=== PATIENT | female | born 1945 | race Caucasian/White ===

== ENCOUNTER 2022-06-07 23:15 | Inpatient (IN) | payer MEDICARE, MEDICAID ==
[2022-06-08] MEDS ORDERED: Ondansetron ODT 4 MG TAB PO PRN (01:27)
[2022-06-08] MEDS ORDERED: Non-Formulary Item 1 EACH (Budesonide-Formoterol [Symbicort 80-4.5] 80 MG/4.5 MG Aer) PO PRN (01:27)
[2022-06-08 01:55] LABS: SARS-CoV-2 NAA Rapid Test Not Detected (NotDetected)
[2022-06-08] MEDS: Acetaminophen 325 MG TAB PO PRN ×4 (02:36→21:57)
[2022-06-08] MEDS ORDERED: FLU VACC QS2022-23(65YR UP)/PF 240 MCG/0.7 ML SYRINGE IM ONE (09:00)
[2022-06-08] MEDS ORDERED: Lansoprazole 3 MG/ML ORAL SUSPENSION PO SCH (09:00)
[2022-06-08] MEDS: Apixaban 5 MG TAB PO SCH ×2 (09:18→20:04)
[2022-06-08] MEDS: Atorvastatin Calcium 20 MG TAB PO SCH (09:18)
[2022-06-08] MEDS: Furosemide 40 MG TAB PO SCH ×2 (09:19→20:03)
[2022-06-08] MEDS: Amlodipine 10 MG TAB PO SCH (09:19)
[2022-06-08] MEDS: Docusate 100 MG CAP PO SCH ×2 (09:19→20:04)
[2022-06-08 09:44] VITALS: BMI 29.9
[2022-06-08 13:17] LABS: Thyroid Stimulating Hormone 0.6889 uIU/mL (0.35-4.94)
[2022-06-08] MEDS ORDERED: Ketorolac Tromethamine 60 MG/2 ML VIAL IM SCH (13:30)
[2022-06-08] MEDS ORDERED: Gentamicin 80 MG/2 ML VIAL IM SCH (14:00)
[2022-06-08] MEDS ORDERED: Ketorolac Tromethamine 30 MG/ML VIAL IM SCH (14:30)
[2022-06-08] MEDS: Gabapentin 300 MG CAP PO SCH (20:03)
[2022-06-08] MEDS ORDERED: Melatonin 3 MG TAB PO SCH (21:00)
[2022-06-08] MEDS ORDERED: Cyclobenzaprine 10 MG TAB PO SCH (21:00)
[2022-06-08] MEDS ORDERED: Gabapentin 300 MG CAP PO SCH (21:00)
[2022-06-09] MEDS: Docusate 100 MG CAP PO SCH ×2 (08:38→22:27)
[2022-06-09] MEDS: Gabapentin 300 MG CAP PO SCH ×2 (08:38→22:27)
[2022-06-09] MEDS: Amlodipine 10 MG TAB PO SCH (08:40)
[2022-06-09] MEDS: Atorvastatin Calcium 20 MG TAB PO SCH (08:40)
[2022-06-09] MEDS: Furosemide 40 MG TAB PO SCH ×2 (08:40→22:28)
[2022-06-09] MEDS: Apixaban 5 MG TAB PO SCH ×2 (08:42→22:28)
[2022-06-09] MEDS: Lidocaine 5% Patch TD SCH (08:42)
[2022-06-09] MEDS: Transdermal Patch Removal TOP SCH (21:00)
[2022-06-10] MEDS: Acetaminophen 325 MG TAB PO PRN (00:19)
[2022-06-10 07:06] LABS: #Eosinphils 0.4 thou/uL (0.0-0.7); #Monocytes 0.8 thou/uL (0.11-0.59); #Neutrophils 4.8 thou/uL (1.40-6.50); %Basophils 0.4 % (0.0-1.0); %Eosinophils 4.4 % (0.0-10.0); %Lymphocytes 25.4 % (21.0-51.0); %Monocytes 9.5 % (0.0-10.0); %Neutrophils 60.3 % (42.0-75.0); Hemoglobin 11.9 g/dL (12.0-16.0); Mean Corpuscular HGB CONC 31.8 g/dL (32.0-36.0); Mean Corpuscular Hemoglobin 26.3 pg (27.0-31.0); Mean Corpuscular Volume 82.6 fL (78.0-98.0); Mean Platelet Volume 7.5 fL (7.4-10.4); Platelet Count 296 thou/uL (130-400); RBC Distribution Width 15.8 % (11.5-14.5); Red Blood Cell (RBC) Count 4.54 mill/uL (4.20-5.40)
[2022-06-10 07:17] LABS: Anion Gap 14 mmol/L (10-20); BUN (Urea Nitrogen) 23 mg/dL (9.8-20.1); Calc. Creatinine Clearance 61 mL/min (70-130); Carbon Dioxide 25 mmol/L (23-31); Chloride 103 mmol/L (98-107); Estimated GFR 56; Glucose 165 mg/dL (83-110); Potassium 3.8 mmol/L (3.5-5.1); Sodium 138 mmol/L (136-145)
[2022-06-10] MEDS: Lidocaine 5% Patch TD SCH (08:49)
[2022-06-10] MEDS: Amlodipine 10 MG TAB PO SCH (08:52)
[2022-06-10] MEDS: Docusate 100 MG CAP PO SCH ×2 (08:52→20:21)
[2022-06-10] MEDS: Apixaban 5 MG TAB PO SCH ×2 (08:53→20:21)
[2022-06-10] MEDS: Furosemide 40 MG TAB PO SCH ×2 (08:53→20:21)
[2022-06-10] MEDS: Atorvastatin Calcium 20 MG TAB PO SCH (08:53)
[2022-06-10] MEDS: Gabapentin 300 MG CAP PO SCH ×2 (08:53→20:21)
[2022-06-10] MEDS ORDERED: Ketorolac Tromethamine 30 MG/ML VIAL IVP SCH (12:00)
[2022-06-10] MEDS: Ketorolac Tromethamine 30 MG/ML VIAL IM SCH ×2 (12:43→17:26)
[2022-06-10] MEDS: Acetaminophen 325 MG TAB PO SCH ×2 (12:43→17:25)
[2022-06-10] MEDS: Transdermal Patch Removal TOP SCH (20:21)
[2022-06-11] MEDS: Ketorolac Tromethamine 30 MG/ML VIAL IM SCH ×2 (00:19→05:54)
[2022-06-11] MEDS: Acetaminophen 325 MG TAB PO SCH ×4 (00:20→18:41)
[2022-06-11] MEDS: Lidocaine 5% Patch TD SCH (09:02)
[2022-06-11] MEDS: Atorvastatin Calcium 20 MG TAB PO SCH (09:03)
[2022-06-11] MEDS: Gabapentin 300 MG CAP PO SCH ×2 (09:03→21:06)
[2022-06-11] MEDS: Furosemide 40 MG TAB PO SCH ×2 (09:03→21:05)
[2022-06-11] MEDS: Amlodipine 10 MG TAB PO SCH (09:03)
[2022-06-11] MEDS: Docusate 100 MG CAP PO SCH ×2 (09:04→21:06)
[2022-06-11] MEDS: Apixaban 5 MG TAB PO SCH ×2 (09:04→21:06)
[2022-06-11] MEDS ORDERED: Cyclobenzaprine 10 MG TAB PO SCH (21:00)
[2022-06-11] MEDS: Transdermal Patch Removal TOP SCH (21:06)
[2022-06-11] MEDS: Ketorolac Tromethamine 30 MG/ML VIAL IM PRN (21:20)
[2022-06-12] MEDS: Acetaminophen 325 MG TAB PO SCH ×5 (01:12→23:44)
[2022-06-12] MEDS: Lidocaine 5% Patch TD SCH (09:22)
[2022-06-12] MEDS: Amlodipine 10 MG TAB PO SCH (09:23)
[2022-06-12] MEDS: Gabapentin 300 MG CAP PO SCH ×2 (09:23→21:00)
[2022-06-12] MEDS: Docusate 100 MG CAP PO SCH ×2 (09:23→21:00)
[2022-06-12] MEDS: Apixaban 5 MG TAB PO SCH ×2 (09:23→21:00)
[2022-06-12] MEDS: Atorvastatin Calcium 20 MG TAB PO SCH (09:23)
[2022-06-12] MEDS: Furosemide 40 MG TAB PO SCH ×2 (09:24→21:00)
[2022-06-12] MEDS ORDERED: metFORMIN 500 MG TAB PO SCH (12:00)
[2022-06-12] MEDS ORDERED: Dextrose 5% in Water 1,000 ML IV PRN (19:48)
[2022-06-12] MEDS ORDERED: Dextrose 50% Abboject 50 ML SYRINGE SLOW IVP PRN (19:48)
[2022-06-12] MEDS: Transdermal Patch Removal TOP SCH (21:01)
[2022-06-12] MEDS: HumaLOG 300 UNITS/3 ML VIAL SC PRN (21:01)
[2022-06-12] MEDS: Ketorolac Tromethamine 30 MG/ML VIAL IM PRN (22:21)
[2022-06-13] MEDS: Acetaminophen 325 MG TAB PO SCH ×4 (05:34→23:26)
[2022-06-13] MEDS: HumaLOG 300 UNITS/3 ML VIAL SC PRN ×4 (07:30→20:16)
[2022-06-13 09:09] LABS: Hemoglobin A1c 7.8 % (4.0-6.0)
[2022-06-13] MEDS: Furosemide 40 MG TAB PO SCH ×2 (09:34→20:13)
[2022-06-13] MEDS: Lidocaine 5% Patch TD SCH (09:34)
[2022-06-13] MEDS: Atorvastatin Calcium 20 MG TAB PO SCH (09:34)
[2022-06-13] MEDS: Apixaban 5 MG TAB PO SCH ×2 (09:34→20:13)
[2022-06-13] MEDS: Amlodipine 10 MG TAB PO SCH (09:34)
[2022-06-13] MEDS: metFORMIN 500 MG TAB PO SCH (09:34)
[2022-06-13] MEDS: Gabapentin 300 MG CAP PO SCH ×2 (09:35→20:13)
[2022-06-13] MEDS: Docusate 100 MG CAP PO SCH ×2 (09:35→20:13)
[2022-06-13] MEDS: Transdermal Patch Removal TOP SCH (20:14)
[2022-06-14] MEDS: Acetaminophen 325 MG TAB PO SCH ×3 (05:10→19:50)
[2022-06-14] MEDS: HumaLOG 300 UNITS/3 ML VIAL SC PRN ×3 (05:16→19:55)
[2022-06-14] MEDS ORDERED: Insulin Glargine 30 UNITS/0.3 ML VIAL SC SCH ×2 (09:00)
[2022-06-14] MEDS: Gabapentin 300 MG CAP PO SCH ×2 (09:24→19:50)
[2022-06-14] MEDS: Atorvastatin Calcium 20 MG TAB PO SCH (09:24)
[2022-06-14] MEDS: Furosemide 40 MG TAB PO SCH ×2 (09:24→19:51)
[2022-06-14] MEDS: Docusate 100 MG CAP PO SCH ×2 (09:24→19:51)
[2022-06-14] MEDS: Apixaban 5 MG TAB PO SCH ×2 (09:25→19:50)
[2022-06-14] MEDS: Amlodipine 10 MG TAB PO SCH (09:25)
[2022-06-14] MEDS: metFORMIN 500 MG TAB PO SCH (09:25)
[2022-06-14] MEDS: Lidocaine 5% Patch TD SCH (09:26)
[2022-06-14] MEDS: Transdermal Patch Removal TOP SCH (19:51)
[2022-06-15] MEDS: Acetaminophen 325 MG TAB PO SCH ×4 (00:33→17:18)
[2022-06-15] MEDS: HumaLOG 300 UNITS/3 ML VIAL SC PRN ×3 (05:25→20:13)
[2022-06-15] MEDS: Furosemide 40 MG TAB PO SCH ×2 (08:32→20:13)
[2022-06-15] MEDS: metFORMIN 500 MG TAB PO SCH (08:32)
[2022-06-15] MEDS: Amlodipine 10 MG TAB PO SCH (08:32)
[2022-06-15] MEDS: Docusate 100 MG CAP PO SCH ×2 (08:32→20:12)
[2022-06-15] MEDS: Apixaban 5 MG TAB PO SCH ×2 (08:32→20:12)
[2022-06-15] MEDS: Atorvastatin Calcium 20 MG TAB PO SCH (08:33)
[2022-06-15] MEDS: Lidocaine 5% Patch TD SCH (08:33)
[2022-06-15] MEDS: Gabapentin 300 MG CAP PO SCH ×2 (08:34→20:12)
[2022-06-15] MEDS ORDERED: Insulin Glargine 30 UNITS/0.3 ML VIAL SC SCH (09:00)
[2022-06-15] MEDS: HumaLOG 300 UNITS/3 ML VIAL SC SCH (17:17)
[2022-06-15] MEDS: Transdermal Patch Removal TOP SCH (20:13)
[2022-06-16] MEDS: Acetaminophen 325 MG TAB PO SCH ×4 (00:36→18:45)
[2022-06-16] MEDS: HumaLOG 300 UNITS/3 ML VIAL SC PRN ×2 (05:36→21:38)
[2022-06-16] MEDS: Docusate 100 MG CAP PO SCH ×2 (07:53→21:02)
[2022-06-16] MEDS: Apixaban 5 MG TAB PO SCH ×2 (07:53→21:03)
[2022-06-16] MEDS: metFORMIN 500 MG TAB PO SCH (07:53)
[2022-06-16] MEDS: Gabapentin 300 MG CAP PO SCH ×2 (07:53→21:02)
[2022-06-16] MEDS: Furosemide 40 MG TAB PO SCH ×2 (07:55→21:02)
[2022-06-16] MEDS: Amlodipine 10 MG TAB PO SCH (07:56)
[2022-06-16] MEDS: Atorvastatin Calcium 20 MG TAB PO SCH (07:56)
[2022-06-16] MEDS: HumaLOG 300 UNITS/3 ML VIAL SC SCH ×3 (08:02→17:04)
[2022-06-16] MEDS: Insulin Glargine 30 UNITS/0.3 ML VIAL SC SCH (08:10)
[2022-06-16] MEDS: Lidocaine 5% Patch TD SCH (09:21)
[2022-06-16] MEDS: Transdermal Patch Removal TOP SCH (21:09)
[2022-06-17 05:06] VITALS: TEMP 97.6
[2022-06-17] MEDS: HumaLOG 300 UNITS/3 ML VIAL SC PRN (06:01)
[2022-06-17] MEDS: Acetaminophen 325 MG TAB PO SCH ×2 (06:02)
[2022-06-17] MEDS: Atorvastatin Calcium 20 MG TAB PO SCH (09:13)
[2022-06-17] MEDS: Amlodipine 10 MG TAB PO SCH (09:13)
[2022-06-17] MEDS: HumaLOG 300 UNITS/3 ML VIAL SC SCH (09:13)
[2022-06-17] MEDS: Apixaban 5 MG TAB PO SCH (09:13)
[2022-06-17] MEDS: metFORMIN 500 MG TAB PO SCH (09:13)
[2022-06-17] MEDS: Lidocaine 5% Patch TD SCH (09:13)
[2022-06-17] MEDS: Furosemide 40 MG TAB PO SCH (09:13)
[2022-06-17] MEDS: Docusate 100 MG CAP PO SCH (09:13)
[2022-06-17] MEDS: Gabapentin 300 MG CAP PO SCH (09:13)
[2022-06-17] MEDS: Insulin Glargine 30 UNITS/0.3 ML VIAL SC SCH (09:14)
[2022-06-17 12:18] VITALS: BP 118/78
== END 2022-06-17 12:40 | DRG 395 ==
LOC: SURG A 06-08 00:03 → OBSVTOIN 06-08 14:19
PROVIDERS: ADMIT Family Medicine; ATTEND Family Medicine
DX: T18.128A Food in esophagus causing other injury, initial encounter (principal); Z20.822 Contact with and (suspected) exposure to COVID-19; Z51.5 Encounter for palliative care; K21.9 Gastro-esophageal reflux disease without esophagitis; E11.42 Type 2 diabetes mellitus with diabetic polyneuropathy; I10 Essential (primary) hypertension; E78.5 Hyperlipidemia, unspecified; J44.9 Chronic obstructive pulmonary disease, unspecified; M54.9 Dorsalgia, unspecified; G89.29 Other chronic pain; F03.90 Unspecified dementia, unspecified severity, without behavioral disturbance, psychotic disturbance, mood disturbance, and anxiety; R29.6 Repeated falls; D64.9 Anemia, unspecified; Z88.5 Allergy status to narcotic agent; Z79.01 Long term (current) use of anticoagulants; Z79.899 Other long term (current) drug therapy; Z90.49 Acquired absence of other specified parts of digestive tract; Z90.710 Acquired absence of both cervix and uterus
CPT/HCPCS: 36415; 36416; 80048; 82607; 83036; 84443; 85025; 87811; G0378; J1580; J1815; J1885; U0002

== ENCOUNTER 2025-04-26 20:57 | Inpatient (IN) | payer MEDICARE, MEDICAID ==
[2025-04-26 23:52] LABS: #Basophils 0.03 10x3/uL (0.0-0.2); #Eosinophils 0.26 10x3/uL (0.0-0.7); #Monocytes 0.94 10x3/uL (0.11-0.59); #Neutrophils 8.42 10x3/uL (1.40-6.50); %Basophils 0.3 % (0.0-1.0); %Eosinophils 2.3 % (0.0-10.0); %Lymphocytes 12.9 % (21.0-51.0); %Monocytes 8.5 % (0.0-10.0); %Neutrophils 75.7 % (42.0-75.0); Hematocrit 31.8 % (36.0-47.0); Hemoglobin 10.2 g/dL (12.0-16.0); Mean Corpuscular Hemoglobin 28.6 pg (27.0-31.0); Mean Corpuscular Volume 89.1 fL (78.0-98.0); Platelet Count 268 10x3/uL (130-400); Red Blood Cell (RBC) Count 3.57 mill/uL (4.20-5.40); White Blood Cell (WBC) Count 11.11 10x3/uL (4.8-10.8)
[2025-04-27 00:06] LABS: INR-International Normal Ratio 1.7; PTT 45.2 sec (22.9-36.1); Prothrombin Time 20.5 sec (12.0-14.7)
[2025-04-27 00:08] LABS: ALT (SGPT) 13 U/L (Less than 34); AST (SGOT) 19 U/L (11-34); Albumin 3.4 g/dL (3.1-4.5); Alkaline Phosphatase 115 U/L (40-110); Anion Gap 17 mmol/L (10-20); BUN (Urea Nitrogen) 24 mg/dL (9.8-20.1); Bilirubin, Total 0.6 mg/dL (0.3-1.2); Calc. Creatinine Clearance 0 mL/min (70-130); Calcium 8.9 mg/dL (7.8-10.44); Carbon Dioxide 22 mmol/L (23-31); Chloride 109 mmol/L (98-107); Globulin 3.6 g/dL (2.4-3.5); Glucose 95 mg/dL (83-110); Potassium 4.0 mmol/L (3.5-5.1); Sodium 144 mmol/L (136-145)
[2025-04-27] MEDS ORDERED: Dextrose 50% Abboject 50 ML SYRINGE SLOW IVP PRN (02:01)
[2025-04-27] MEDS ORDERED: Ondansetron PF 4 MG/2 ML Vial IVP PRN (02:01)
[2025-04-27] MEDS ORDERED: Glucagon 1 MG/ML KIT IM PRN (02:01)
[2025-04-27] MEDS ORDERED: Acetaminophen 325 MG TAB PO PRN (02:01)
[2025-04-27 02:08] LABS: Bacteria/HPF None Seen HPF (None Seen); CAUTI Indications for Culture Alt mental st,lethar; Glucose, Urine (Dipstick) Normal (Negative); Leukocyte Negative Leu/uL (Negative); Protein, Urine (Dipstick) Negative (Neg-Trace); Specific Gravity, Urine 1.012 (1.002-1.036); WBC/HPF 0-3 HPF (0-3)
[2025-04-27 02:09] LABS: Urine Culture Reflex No No
[2025-04-27 03:37] VITALS: BMI 32.0
[2025-04-27 04:51] LABS: #Basophils Less than 0.03 10x3/uL (0.0-0.2); #Eosinophils 0.14 10x3/uL (0.0-0.7); #Monocytes 0.59 10x3/uL (0.11-0.59); #Neutrophils 6.99 10x3/uL (1.40-6.50); %Basophils 0.2 % (0.0-1.0); %Eosinophils 1.6 % (0.0-10.0); %Lymphocytes 11.2 % (21.0-51.0); %Monocytes 6.7 % (0.0-10.0); %Neutrophils 80.0 % (42.0-75.0); Hematocrit 30.3 % (36.0-47.0); Hemoglobin 9.6 g/dL (12.0-16.0); Mean Corpuscular Hemoglobin 28.6 pg (27.0-31.0); Mean Corpuscular Volume 90.2 fL (78.0-98.0); Platelet Count 270 10x3/uL (130-400); Red Blood Cell (RBC) Count 3.36 mill/uL (4.20-5.40); White Blood Cell (WBC) Count 8.75 10x3/uL (4.8-10.8)
[2025-04-27 05:20] LABS: Anion Gap 12 mmol/L (10-20); BUN (Urea Nitrogen) 19 mg/dL (9.8-20.1); Calc. Creatinine Clearance 90 mL/min (70-130); Calcium 8.5 mg/dL (7.8-10.44); Carbon Dioxide 25 mmol/L (23-31); Chloride 110 mmol/L (98-107); Glucose 108 mg/dL (83-110); Potassium 3.9 mmol/L (3.5-5.1); Sodium 143 mmol/L (136-145)
[2025-04-27] MEDS: Famotidine/PF 20 mg/2ml Vial SLOW IVP SCH (08:44)
[2025-04-27] MEDS: hydrALAZINE 20 MG/ML VIAL SLOW IVP PRN (08:48)
[2025-04-27] MEDS: Mupirocin 1 GM TUBE NASAL DECOLONIZATION TP SCH (12:43)
[2025-04-27] MEDS ORDERED: Iopamidol 370 76% 100 ML VIAL ONE (13:32)
[2025-04-27] MEDS: Mupirocin 1 GM TUBE NASAL DECOLOIZATION TP SCH (21:54)
[2025-04-28 04:25] LABS: #Basophils 0.04 10x3/uL (0.0-0.2); #Eosinophils 0.25 10x3/uL (0.0-0.7); #Monocytes 0.81 10x3/uL (0.11-0.59); #Neutrophils 7.30 10x3/uL (1.40-6.50); %Basophils 0.4 % (0.0-1.0); %Eosinophils 2.6 % (0.0-10.0); %Lymphocytes 13.7 % (21.0-51.0); %Monocytes 8.3 % (0.0-10.0); %Neutrophils 74.5 % (42.0-75.0); Hematocrit 31.3 % (36.0-47.0); Hemoglobin 10.1 g/dL (12.0-16.0); Mean Corpuscular Hemoglobin 28.1 pg (27.0-31.0); Mean Corpuscular Volume 87.2 fL (78.0-98.0); Platelet Count 274 10x3/uL (130-400); Red Blood Cell (RBC) Count 3.59 mill/uL (4.20-5.40); White Blood Cell (WBC) Count 9.79 10x3/uL (4.8-10.8)
[2025-04-28 04:39] LABS: Anion Gap 18 mmol/L (10-20); BUN (Urea Nitrogen) 14 mg/dL (9.8-20.1); Calc. Creatinine Clearance 114 mL/min (70-130); Calcium 9.0 mg/dL (7.8-10.44); Carbon Dioxide 20 mmol/L (23-31); Chloride 105 mmol/L (98-107); Glucose 123 mg/dL (83-110); Potassium 3.8 mmol/L (3.5-5.1); Sodium 139 mmol/L (136-145)
[2025-04-28] MEDS: Transdermal Patch Removal TOP SCH (08:00)
[2025-04-29 04:37] LABS: #Basophils 0.04 10x3/uL (0.0-0.2); #Eosinophils 0.18 10x3/uL (0.0-0.7); #Monocytes 1.01 10x3/uL (0.11-0.59); #Neutrophils 8.71 10x3/uL (1.40-6.50); %Basophils 0.4 % (0.0-1.0); %Eosinophils 1.6 % (0.0-10.0); %Lymphocytes 11.7 % (21.0-51.0); %Monocytes 8.9 % (0.0-10.0); %Neutrophils 76.7 % (42.0-75.0); Hematocrit 33.0 % (36.0-47.0); Hemoglobin 10.7 g/dL (12.0-16.0); Mean Corpuscular Hemoglobin 28.6 pg (27.0-31.0); Mean Corpuscular Volume 88.2 fL (78.0-98.0); Platelet Count 304 10x3/uL (130-400); Red Blood Cell (RBC) Count 3.74 mill/uL (4.20-5.40); White Blood Cell (WBC) Count 11.35 10x3/uL (4.8-10.8)
[2025-04-29 05:04] LABS: Anion Gap 17 mmol/L (10-20); BUN (Urea Nitrogen) 14 mg/dL (9.8-20.1); Calc. Creatinine Clearance 96 mL/min (70-130); Calcium 8.8 mg/dL (7.8-10.44); Carbon Dioxide 20 mmol/L (23-31); Chloride 103 mmol/L (98-107); Glucose 143 mg/dL (83-110); Potassium 3.8 mmol/L (3.5-5.1); Sodium 136 mmol/L (136-145)
[2025-04-29] MEDS ORDERED: HALOPERIDOL 2 MG PO PRN (09:46)
[2025-04-29] MEDS ORDERED: Furosemide 40 MG TAB PO PRN (09:46)
[2025-04-29] MEDS: Losartan 25 MG TAB PO SCH ×2 (10:00→14:20)
[2025-04-29] MEDS: QUEtiapine 25 MG TAB PO SCH ×2 (10:00→21:27)
[2025-04-29] MEDS: Metoprolol Succinate XL 25 MG ER.TAB PO SCH ×2 (10:00→14:30)
[2025-04-29] MEDS ORDERED: Haloperidol 1 MG TAB PO PRN (11:12)
[2025-04-29] MEDS ORDERED: QUEtiapine 25 MG TAB PO SCH (15:00)
[2025-04-29] MEDS: oxyCODONE 5 MG TAB PO PRN (18:12)
[2025-04-29] MEDS: Mometasone 100 MCG/Formoterol 5 MCG 120 PUFF INHALER INH SCH (18:42)
[2025-04-29] MEDS: cloNIDine 0.1 MG TAB PO PRN (21:26)
[2025-04-29] MEDS: Acetaminophen 500 MG TAB PO SCH (21:27)
[2025-04-29] MEDS: Melatonin 3 MG TAB PO SCH (21:28)
[2025-04-30 07:59] LABS: #Basophils 0.05 10x3/uL (0.0-0.2); #Eosinophils 0.72 10x3/uL (0.0-0.7); #Monocytes 1.21 10x3/uL (0.11-0.59); #Neutrophils 9.04 10x3/uL (1.40-6.50); %Basophils 0.4 % (0.0-1.0); %Eosinophils 5.8 % (0.0-10.0); %Lymphocytes 11.5 % (21.0-51.0); %Monocytes 9.7 % (0.0-10.0); %Neutrophils 72.2 % (42.0-75.0); Hematocrit 32.0 % (36.0-47.0); Hemoglobin 10.6 g/dL (12.0-16.0); Mean Corpuscular Hemoglobin 29.1 pg (27.0-31.0); Mean Corpuscular Volume 87.9 fL (78.0-98.0); Platelet Count 256 10x3/uL (130-400); Red Blood Cell (RBC) Count 3.64 mill/uL (4.20-5.40); White Blood Cell (WBC) Count 12.51 10x3/uL (4.8-10.8)
[2025-04-30 08:09] LABS: Anion Gap 14 mmol/L (10-20); BUN (Urea Nitrogen) 14 mg/dL (9.8-20.1); Calc. Creatinine Clearance 92 mL/min (70-130); Calcium 8.6 mg/dL (7.8-10.44); Carbon Dioxide 25 mmol/L (23-31); Chloride 105 mmol/L (98-107); Glucose 146 mg/dL (83-110); Potassium 3.6 mmol/L (3.5-5.1); Sodium 140 mmol/L (136-145)
[2025-04-30] MEDS: Losartan 25 MG TAB PO SCH (10:33)
[2025-04-30] MEDS: Metoprolol Succinate XL 25 MG ER.TAB PO SCH (10:34)
[2025-04-30] MEDS: QUEtiapine 25 MG TAB PO SCH (10:34)
[2025-05-01 04:17] LABS: #Basophils 0.05 10x3/uL (0.0-0.2); #Eosinophils 0.77 10x3/uL (0.0-0.7); #Monocytes 1.42 10x3/uL (0.11-0.59); #Neutrophils 6.06 10x3/uL (1.40-6.50); %Basophils 0.5 % (0.0-1.0); %Eosinophils 7.7 % (0.0-10.0); %Lymphocytes 17.0 % (21.0-51.0); %Monocytes 14.1 % (0.0-10.0); %Neutrophils 60.3 % (42.0-75.0); Hematocrit 32.9 % (36.0-47.0); Hemoglobin 10.5 g/dL (12.0-16.0); Mean Corpuscular Hemoglobin 28.8 pg (27.0-31.0); Mean Corpuscular Volume 90.1 fL (78.0-98.0); Platelet Count 247 10x3/uL (130-400); Red Blood Cell (RBC) Count 3.65 mill/uL (4.20-5.40); White Blood Cell (WBC) Count 10.05 10x3/uL (4.8-10.8)
[2025-05-01 04:38] LABS: Anion Gap 16 mmol/L (10-20); BUN (Urea Nitrogen) 16 mg/dL (9.8-20.1); Calc. Creatinine Clearance 89 mL/min (70-130); Calcium 8.7 mg/dL (7.8-10.44); Carbon Dioxide 21 mmol/L (23-31); Chloride 108 mmol/L (98-107); Glucose 154 mg/dL (83-110); Potassium 4.1 mmol/L (3.5-5.1); Sodium 141 mmol/L (136-145)
[2025-05-01 18:35] LABS: Bacteria/HPF 2+ HPF (None Seen); CAUTI Indications for Culture Alt mental st,lethar; Glucose, Urine (Dipstick) 200 mg/dL (Negative); Leukocyte 500 Leu/uL (Negative); Protein, Urine (Dipstick) 50 mg/dL (Neg-Trace); RBC/HPF 0-3 HPF (0-3); Specific Gravity, Urine 1.015 (1.002-1.036); WBC/HPF Greater than 50 HPF (0-3)
[2025-05-01 18:38] LABS: Urine Culture Reflex Yes Yes
[2025-05-01] MEDS: Apixaban 5 MG TAB PO SCH (22:01)
[2025-05-02 04:25] LABS: Anion Gap 17 mmol/L (10-20); BUN (Urea Nitrogen) 16 mg/dL (9.8-20.1); Calc. Creatinine Clearance 84 mL/min (70-130); Calcium 8.7 mg/dL (7.8-10.44); Carbon Dioxide 24 mmol/L (23-31); Chloride 109 mmol/L (98-107); Glucose 158 mg/dL (83-110); Potassium 3.6 mmol/L (3.5-5.1); Sodium 146 mmol/L (136-145)
[2025-05-02 04:34] LABS: #Basophils 0.04 10x3/uL (0.0-0.2); #Eosinophils 0.80 10x3/uL (0.0-0.7); #Monocytes 1.19 10x3/uL (0.11-0.59); #Neutrophils 5.94 10x3/uL (1.40-6.50); %Basophils 0.4 % (0.0-1.0); %Eosinophils 8.0 % (0.0-10.0); %Lymphocytes 19.6 % (21.0-51.0); %Monocytes 12.0 % (0.0-10.0); %Neutrophils 59.7 % (42.0-75.0); Hematocrit 34.9 % (36.0-47.0); Hemoglobin 11.2 g/dL (12.0-16.0); Mean Corpuscular Hemoglobin 28.3 pg (27.0-31.0); Mean Corpuscular Volume 88.1 fL (78.0-98.0); Platelet Count 283 10x3/uL (130-400); Red Blood Cell (RBC) Count 3.96 mill/uL (4.20-5.40); White Blood Cell (WBC) Count 9.95 10x3/uL (4.8-10.8)
[2025-05-02] MEDS: Ciprofloxacin Lactate/D5W 200 MG in Premix 1 BAG IVPB SCH (09:55)
[2025-05-02] MEDS: Carvedilol 6.25 MG TAB PO SCH (16:39)
[2025-05-02 17:10] VITALS: BMI 31.6
[2025-05-02] MEDS: Losartan 25 MG TAB PO SCH (21:38)
[2025-05-02] MEDS: Ciprofloxacin Lactate/D5W 400 MG in Premix 1 BAG IVPB SCH (21:38)
[2025-05-03 03:54] LABS: #Basophils 0.04 10x3/uL (0.0-0.2); #Eosinophils 0.80 10x3/uL (0.0-0.7); #Monocytes 1.02 10x3/uL (0.11-0.59); #Neutrophils 6.39 10x3/uL (1.40-6.50); %Basophils 0.4 % (0.0-1.0); %Eosinophils 7.8 % (0.0-10.0); %Lymphocytes 18.9 % (21.0-51.0); %Monocytes 10.0 % (0.0-10.0); %Neutrophils 62.4 % (42.0-75.0); Hematocrit 32.1 % (36.0-47.0); Hemoglobin 10.0 g/dL (12.0-16.0); Mean Corpuscular Hemoglobin 28.0 pg (27.0-31.0); Mean Corpuscular Volume 89.9 fL (78.0-98.0); Platelet Count 269 10x3/uL (130-400); Red Blood Cell (RBC) Count 3.57 mill/uL (4.20-5.40); White Blood Cell (WBC) Count 10.23 10x3/uL (4.8-10.8)
[2025-05-03 04:13] LABS: Anion Gap 12 mmol/L (10-20); BUN (Urea Nitrogen) 19 mg/dL (9.8-20.1); Calc. Creatinine Clearance 92 mL/min (70-130); Calcium 8.6 mg/dL (7.8-10.44); Carbon Dioxide 23 mmol/L (23-31); Chloride 107 mmol/L (98-107); Glucose 178 mg/dL (83-110); Potassium 4.0 mmol/L (3.5-5.1); Sodium 138 mmol/L (136-145)
[2025-05-03] MEDS: hydrALAZINE 20 MG/ML VIAL SLOW IVP SCH (09:00)
[2025-05-03] MEDS: Famotidine 20 MG TAB PO SCH (10:25)
[2025-05-03 15:34] VITALS: TEMP 97.9
[2025-05-03 16:59] VITALS: BP 153/67
== END 2025-05-03 17:25 | DRG 551 ==
LOC: ERS 20:57 → UNDOADMIN 04-27 02:01 → CCU 04-27 02:01 → PCU 04-28 00:12
PROVIDERS: ADMIT Surgery; ATTEND Surgery
DX: S12.600A Unspecified displaced fracture of seventh cervical vertebra, initial encounter for closed fracture (principal); I77.74 Dissection of vertebral artery; G93.40 Encephalopathy, unspecified; F03.918 Unspecified dementia, unspecified severity, with other behavioral disturbance; N39.0 Urinary tract infection, site not specified; W19.XXXA Unspecified fall, initial encounter; Z88.8 Allergy status to other drugs, medicaments and biological substances; S00.03XA Contusion of scalp, initial encounter; S12.000A Unspecified displaced fracture of first cervical vertebra, initial encounter for closed fracture; Z91.010 Allergy to peanuts; K21.9 Gastro-esophageal reflux disease without esophagitis; J44.9 Chronic obstructive pulmonary disease, unspecified; E78.5 Hyperlipidemia, unspecified; Z98.890 Other specified postprocedural states; I10 Essential (primary) hypertension; F32.A Depression, unspecified; I48.0 Paroxysmal atrial fibrillation; F41.9 Anxiety disorder, unspecified; I16.0 Hypertensive urgency; E11.40 Type 2 diabetes mellitus with diabetic neuropathy, unspecified; Z79.899 Other long term (current) drug therapy
CPT/HCPCS: 36415; 36416; 70496; 70498; 71045; 80048; 81001; 84484; 85025; 87086; 94664; 96374; 96375; 96376; G0390; J0360; J0744; J1308; J1630; J1815; J2060; J3010; J7030; J7070; J7120; Q9967

== ENCOUNTER 2025-05-14 16:56 | Inpatient (IN) | payer MEDICARE, MEDICAID ==
[2025-05-14 19:04] LABS: Actual Bicarbonate (HCO3a) 17.5 mEq/L (22-28); Base Excess (BEa) -6.4 mEq/L (-2.0 to +3.0); CO2 Tension 29.6 mmHg (35.0-45.0); Calcium, Ionized (arterial) 1.16 mmol/L (1.12-1.30); Hematocrit-ABG 32 % (36.0-47.0); Hemoglobin (Hb) 10.8 g/dL (12.0-16.0); Potassium - ABG Lab 4.96 mmol/L (3.70-5.30); pH, Arterial 7.389 (7.35-7.45)
[2025-05-14] MEDS ORDERED: Dextrose 50% Abboject 50 ML SYRINGE SLOW IVP PRN (19:10)
[2025-05-14] MEDS ORDERED: Glucagon 1 MG/ML KIT IM PRN (19:10)
[2025-05-14] MEDS ORDERED: Ondansetron PF 4 MG/2 ML Vial IVP PRN (19:10)
[2025-05-14] MEDS ORDERED: Acetaminophen 325 MG TAB PER TUBE PRN (19:10)
[2025-05-14] MEDS: Etomidate 40 MG (20 mL) VIAL IVP SCH (19:15)
[2025-05-14 19:22] LABS: O2 Tension (PaO2), arterial 47.8 mmHg (> 70.0)
[2025-05-14 19:23] LABS: Puncture Site Right Radial artery
[2025-05-14 19:24] LABS: ALV-art Gradient 143.360 mmHg (0-20)
[2025-05-14] MEDS ORDERED: Fentanyl BOLUS 100 ML IVPB PRN (19:30)
[2025-05-14] MEDS ORDERED: Ventilator Sedation Protocol 1 EACH FS SCH (19:30)
[2025-05-14] MEDS ORDERED: Propofol BOLUS 1,000 MG/100 ML VIAL IV PRN (19:30)
[2025-05-14] MEDS ORDERED: DISCONTINUE PREVIOUS NARCOTIC PAIN MEDICATIONS AND BENZODIAZEPINES FS SCH (19:30)
[2025-05-14] MEDS: NOREPINEPHRINE 8 MG/250 ML-D5W 250 ML IVPB SCH (20:31)
[2025-05-14 20:39] LABS: #Basophils Less than 0.03 10x3/uL (0.0-0.2); #Eosinophils Less than 0.03 10x3/uL (0.0-0.7); #Monocytes 1.20 10x3/uL (0.11-0.59); #Neutrophils 13.13 10x3/uL (1.40-6.50); %Basophils 0.1 % (0.0-1.0); %Eosinophils 0.1 % (0.0-10.0); %Lymphocytes 3.1 % (21.0-51.0); %Monocytes 8.0 % (0.0-10.0); %Neutrophils 88.1 % (42.0-75.0); Hematocrit 29.8 % (36.0-47.0); Hemoglobin 9.4 g/dL (12.0-16.0); Mean Corpuscular Hemoglobin 28.7 pg (27.0-31.0); Mean Corpuscular Volume 91.1 fL (78.0-98.0); Platelet Count 431 10x3/uL (130-400); Red Blood Cell (RBC) Count 3.27 mill/uL (4.20-5.40); White Blood Cell (WBC) Count 14.91 10x3/uL (4.8-10.8)
[2025-05-14 21:02] LABS: ALT (SGPT) Less than 7 U/L (Less than 34); AST (SGOT) 14 U/L (11-34); Albumin 2.7 g/dL (3.1-4.5); Alkaline Phosphatase 111 U/L (40-110); Anion Gap 20 mmol/L (10-20); BUN (Urea Nitrogen) 69 mg/dL (9.8-20.1); Bilirubin, Total 0.8 mg/dL (0.3-1.2); Calc. Creatinine Clearance 0 mL/min (70-130); Calcium 8.7 mg/dL (7.8-10.44); Carbon Dioxide 16 mmol/L (23-31); Chloride 113 mmol/L (98-107); Globulin 3.7 g/dL (2.4-3.5); Glucose 161 mg/dL (83-110); Potassium 4.8 mmol/L (3.5-5.1); Sodium 144 mmol/L (136-145)
[2025-05-14] MEDS: Pantoprazole 40 MG VIAL IVP SCH (21:30)
[2025-05-14] MEDS: Enoxaparin 40 MG (0.4 mL) SYRINGE SC SCH (21:30)
[2025-05-14 22:38] VITALS: BMI 29.8
[2025-05-15] MEDS: Acetaminophen 325 MG TAB PO SCH
[2025-05-15] MEDS: NOREPINEPHRINE 8 MG/250 ML-D5W 250 ML ONE (00:02)
[2025-05-15 01:24] LABS: Legionella Urinary Ag Negative (Negative); Strep pneumo Urine Ag NEGATIVE (NEGATIVE)
[2025-05-15 01:51] LABS: Influenza A by NAA Not Detected (NotDetected); Influenza B by NAA Not Detected (NotDetected); RSV by NAA Not Detected (NotDetected); SARS-CoV-2 NAA Rapid Test Not Detected (NotDetected)
[2025-05-15 03:25] LABS: #Basophils 0.03 10x3/uL (0.0-0.2); #Eosinophils 0.14 10x3/uL (0.0-0.7); #Monocytes 1.48 10x3/uL (0.11-0.59); #Neutrophils 13.23 10x3/uL (1.40-6.50); %Basophils 0.2 % (0.0-1.0); %Eosinophils 0.9 % (0.0-10.0); %Lymphocytes 5.8 % (21.0-51.0); %Monocytes 9.3 % (0.0-10.0); %Neutrophils 83.0 % (42.0-75.0); Hematocrit 31.7 % (36.0-47.0); Hemoglobin 9.8 g/dL (12.0-16.0); Mean Corpuscular Hemoglobin 28.4 pg (27.0-31.0); Mean Corpuscular Volume 91.9 fL (78.0-98.0); Platelet Count 425 10x3/uL (130-400); Red Blood Cell (RBC) Count 3.45 mill/uL (4.20-5.40); White Blood Cell (WBC) Count 15.93 10x3/uL (4.8-10.8)
[2025-05-15 03:48] LABS: ALT (SGPT) Less than 7 U/L (Less than 34); AST (SGOT) 14 U/L (11-34); Albumin 2.6 g/dL (3.1-4.5); Alkaline Phosphatase 108 U/L (40-110); Anion Gap 17 mmol/L (10-20); BUN (Urea Nitrogen) 62 mg/dL (9.8-20.1); Bilirubin, Total 0.6 mg/dL (0.3-1.2); Calc. Creatinine Clearance 43 mL/min (70-130); Calcium 8.7 mg/dL (7.8-10.44); Carbon Dioxide 19 mmol/L (23-31); Chloride 114 mmol/L (98-107); Globulin 3.8 g/dL (2.4-3.5); Glucose 158 mg/dL (83-110); Potassium 4.6 mmol/L (3.5-5.1); Sodium 145 mmol/L (136-145)
[2025-05-15 03:57] LABS: CRP, High Sensitivity at Bryan 22.07 mg/dL (< or = 0.5)
[2025-05-15] MEDS: Mometasone 200 MCG/Formoterol 5 MCG 120 PUFF INHALER INH SCH (07:15)
[2025-05-15 07:24] LABS: Actual Bicarbonate (HCO3a) 20.9 mEq/L (22-28); Base Excess (BEa) -3.3 mEq/L (-2.0 to +3.0); CO2 Tension 34.4 mmHg (35.0-45.0); Calcium, Ionized (arterial) 1.19 mmol/L (1.12-1.30); Hematocrit-ABG 30 % (36.0-47.0); Hemoglobin (Hb) 10.2 g/dL (12.0-16.0); O2 Tension (PaO2), arterial 67.8 mmHg (> 70.0); Potassium - ABG Lab 4.19 mmol/L (3.70-5.30); pH, Arterial 7.401 (7.35-7.45)
[2025-05-15] MEDS: Pantoprazole 40 MG VIAL IVP SCH (07:24)
[2025-05-15 07:25] LABS: ALV-art Gradient 245.700 mmHg (0-20); Puncture Site Right Brachial art
[2025-05-15] MEDS ORDERED: Enoxaparin 40 MG (0.4 mL) SYRINGE SC SCH (09:00)
[2025-05-16 04:40] LABS: #Basophils 0.03 10x3/uL (0.0-0.2); #Eosinophils 0.38 10x3/uL (0.0-0.7); #Monocytes 1.39 10x3/uL (0.11-0.59); #Neutrophils 14.37 10x3/uL (1.40-6.50); %Basophils 0.2 % (0.0-1.0); %Eosinophils 2.2 % (0.0-10.0); %Lymphocytes 6.9 % (21.0-51.0); %Monocytes 7.9 % (0.0-10.0); %Neutrophils 81.9 % (42.0-75.0); Hematocrit 26.3 % (36.0-47.0); Hemoglobin 8.3 g/dL (12.0-16.0); Mean Corpuscular Hemoglobin 28.9 pg (27.0-31.0); Mean Corpuscular Volume 91.6 fL (78.0-98.0); Platelet Count 399 10x3/uL (130-400); Red Blood Cell (RBC) Count 2.87 mill/uL (4.20-5.40); White Blood Cell (WBC) Count 17.54 10x3/uL (4.8-10.8)
[2025-05-16 05:14] LABS: Anion Gap 14 mmol/L (10-20); BUN (Urea Nitrogen) 33 mg/dL (9.8-20.1); Calc. Creatinine Clearance 60 mL/min (70-130); Calcium 8.5 mg/dL (7.8-10.44); Carbon Dioxide 19 mmol/L (23-31); Chloride 115 mmol/L (98-107); Glucose 105 mg/dL (83-110); Potassium 4.2 mmol/L (3.5-5.1); Sodium 144 mmol/L (136-145)
[2025-05-16 07:25] LABS: Actual Bicarbonate (HCO3a) 20.6 mEq/L (22-28); Base Excess (BEa) -3.7 mEq/L (-2.0 to +3.0); CO2 Tension 33.9 mmHg (35.0-45.0); Calcium, Ionized (arterial) 1.14 mmol/L (1.12-1.30); Hematocrit-ABG 27 % (36.0-47.0); Hemoglobin (Hb) 9.3 g/dL (12.0-16.0); O2 Tension (PaO2), arterial 65.5 mmHg (> 70.0); Potassium - ABG Lab 4.23 mmol/L (3.70-5.30); pH, Arterial 7.401 (7.35-7.45)
[2025-05-16 07:35] LABS: ALV-art Gradient 248.625 mmHg (0-20); Puncture Site Left Radial artery
[2025-05-17 04:50] LABS: #Basophils 0.04 10x3/uL (0.0-0.2); #Eosinophils 0.53 10x3/uL (0.0-0.7); #Monocytes 1.43 10x3/uL (0.11-0.59); #Neutrophils 14.48 10x3/uL (1.40-6.50); %Basophils 0.2 % (0.0-1.0); %Eosinophils 2.9 % (0.0-10.0); %Lymphocytes 6.6 % (21.0-51.0); %Monocytes 8.0 % (0.0-10.0); %Neutrophils 80.5 % (42.0-75.0); Hematocrit 28.3 % (36.0-47.0); Hemoglobin 8.9 g/dL (12.0-16.0); Mean Corpuscular Hemoglobin 28.5 pg (27.0-31.0); Mean Corpuscular Volume 90.7 fL (78.0-98.0); Platelet Count 403 10x3/uL (130-400); Red Blood Cell (RBC) Count 3.12 mill/uL (4.20-5.40); White Blood Cell (WBC) Count 17.98 10x3/uL (4.8-10.8)
[2025-05-17 05:13] LABS: Anion Gap 15 mmol/L (10-20); BUN (Urea Nitrogen) 27 mg/dL (9.8-20.1); Calc. Creatinine Clearance 70 mL/min (70-130); Calcium 8.6 mg/dL (7.8-10.44); Carbon Dioxide 18 mmol/L (23-31); Chloride 112 mmol/L (98-107); Glucose 185 mg/dL (83-110); Potassium 3.9 mmol/L (3.5-5.1); Sodium 141 mmol/L (136-145)
[2025-05-17 07:11] LABS: Actual Bicarbonate (HCO3a) 20.0 mEq/L (22-28); Base Excess (BEa) -3.7 mEq/L (-2.0 to +3.0); CO2 Tension 31.1 mmHg (35.0-45.0); Calcium, Ionized (arterial) 1.12 mmol/L (1.12-1.30); Hematocrit-ABG 26 % (36.0-47.0); Hemoglobin (Hb) 9.0 g/dL (12.0-16.0); O2 Tension (PaO2), arterial 78.8 mmHg (> 70.0); Potassium - ABG Lab 3.99 mmol/L (3.70-5.30); pH, Arterial 7.426 (7.35-7.45)
[2025-05-17 07:15] LABS: ALV-art Gradient 238.825 mmHg (0-20); Puncture Site Left Radial artery
[2025-05-17] MEDS: Lansoprazole 30 MG/10 ML UDCUP PER TUBE SCH (09:53)
[2025-05-17] MEDS: Acetylcysteine 20% 200 MG/ML 30 ML VIAL INH SCH (14:39)
[2025-05-18 04:47] LABS: #Basophils 0.03 10x3/uL (0.0-0.2); #Eosinophils 0.58 10x3/uL (0.0-0.7); #Monocytes 1.06 10x3/uL (0.11-0.59); #Neutrophils 10.27 10x3/uL (1.40-6.50); %Basophils 0.2 % (0.0-1.0); %Eosinophils 4.4 % (0.0-10.0); %Lymphocytes 9.2 % (21.0-51.0); %Monocytes 8.0 % (0.0-10.0); %Neutrophils 76.9 % (42.0-75.0); Hematocrit 24.3 % (36.0-47.0); Hemoglobin 7.5 g/dL (12.0-16.0); Mean Corpuscular Hemoglobin 28.0 pg (27.0-31.0); Mean Corpuscular Volume 90.7 fL (78.0-98.0); Platelet Count 322 10x3/uL (130-400); Red Blood Cell (RBC) Count 2.68 mill/uL (4.20-5.40); White Blood Cell (WBC) Count 13.33 10x3/uL (4.8-10.8)
[2025-05-18 05:01] LABS: Anion Gap 10 mmol/L (10-20); BUN (Urea Nitrogen) 27 mg/dL (9.8-20.1); Calc. Creatinine Clearance 79 mL/min (70-130); Calcium 7.8 mg/dL (7.8-10.44); Carbon Dioxide 21 mmol/L (23-31); Chloride 112 mmol/L (98-107); Glucose 193 mg/dL (83-110); Potassium 4.1 mmol/L (3.5-5.1); Sodium 139 mmol/L (136-145)
[2025-05-19 03:24] LABS: #Basophils Less than 0.03 10x3/uL (0.0-0.2); #Eosinophils 0.54 10x3/uL (0.0-0.7); #Monocytes 1.01 10x3/uL (0.11-0.59); #Neutrophils 7.06 10x3/uL (1.40-6.50); %Basophils 0.2 % (0.0-1.0); %Eosinophils 5.5 % (0.0-10.0); %Lymphocytes 10.4 % (21.0-51.0); %Monocytes 10.4 % (0.0-10.0); %Neutrophils 72.5 % (42.0-75.0); Hematocrit 24.2 % (36.0-47.0); Hemoglobin 7.5 g/dL (12.0-16.0); Mean Corpuscular Hemoglobin 28.2 pg (27.0-31.0); Mean Corpuscular Volume 91.0 fL (78.0-98.0); Platelet Count 292 10x3/uL (130-400); Red Blood Cell (RBC) Count 2.66 mill/uL (4.20-5.40); White Blood Cell (WBC) Count 9.74 10x3/uL (4.8-10.8)
[2025-05-19 03:45] LABS: Anion Gap 13 mmol/L (10-20); BUN (Urea Nitrogen) 22 mg/dL (9.8-20.1); Calc. Creatinine Clearance 108 mL/min (70-130); Calcium 8.0 mg/dL (7.8-10.44); Carbon Dioxide 20 mmol/L (23-31); Chloride 110 mmol/L (98-107); Glucose 174 mg/dL (83-110); Potassium 3.9 mmol/L (3.5-5.1); Sodium 139 mmol/L (136-145)
[2025-05-20 05:41] LABS: #Basophils Less than 0.03 10x3/uL (0.0-0.2); #Eosinophils 0.53 10x3/uL (0.0-0.7); #Monocytes 0.92 10x3/uL (0.11-0.59); #Neutrophils 5.65 10x3/uL (1.40-6.50); %Basophils 0.2 % (0.0-1.0); %Eosinophils 6.4 % (0.0-10.0); %Lymphocytes 13.3 % (21.0-51.0); %Monocytes 11.1 % (0.0-10.0); %Neutrophils 67.9 % (42.0-75.0); Hematocrit 24.1 % (36.0-47.0); Hemoglobin 7.5 g/dL (12.0-16.0); Mean Corpuscular Hemoglobin 28.2 pg (27.0-31.0); Mean Corpuscular Volume 90.6 fL (78.0-98.0); Platelet Count 297 10x3/uL (130-400); Red Blood Cell (RBC) Count 2.66 mill/uL (4.20-5.40); White Blood Cell (WBC) Count 8.32 10x3/uL (4.8-10.8)
[2025-05-20 05:51] LABS: Anion Gap 11 mmol/L (10-20); BUN (Urea Nitrogen) 18 mg/dL (9.8-20.1); Calc. Creatinine Clearance 117 mL/min (70-130); Calcium 8.0 mg/dL (7.8-10.44); Carbon Dioxide 22 mmol/L (23-31); Chloride 111 mmol/L (98-107); Glucose 182 mg/dL (83-110); Potassium 3.9 mmol/L (3.5-5.1); Sodium 140 mmol/L (136-145)
[2025-05-20 06:42] LABS: Actual Bicarbonate (HCO3a) 22.4 mEq/L (22-28); Base Excess (BEa) -1.4 mEq/L (-2.0 to +3.0); CO2 Tension 33.6 mmHg (35.0-45.0); Calcium, Ionized (arterial) 1.13 mmol/L (1.12-1.30); Hematocrit-ABG 25 % (36.0-47.0); Hemoglobin (Hb) 8.4 g/dL (12.0-16.0); O2 Tension (PaO2), arterial 70.7 mmHg (> 70.0); Potassium - ABG Lab 3.84 mmol/L (3.70-5.30); pH, Arterial 7.442 (7.35-7.45)
[2025-05-20 06:46] LABS: Puncture Site Right Radial artery
[2025-05-20 06:47] LABS: ALV-art Gradient 172.500 mmHg (0-20)
[2025-05-21 04:21] LABS: #Basophils Less than 0.03 10x3/uL (0.0-0.2); #Eosinophils 0.51 10x3/uL (0.0-0.7); #Monocytes 0.85 10x3/uL (0.11-0.59); #Neutrophils 5.75 10x3/uL (1.40-6.50); %Basophils 0.2 % (0.0-1.0); %Eosinophils 6.1 % (0.0-10.0); %Lymphocytes 13.5 % (21.0-51.0); %Monocytes 10.2 % (0.0-10.0); %Neutrophils 69.2 % (42.0-75.0); Hematocrit 25.4 % (36.0-47.0); Hemoglobin 7.9 g/dL (12.0-16.0); Mean Corpuscular Hemoglobin 28.1 pg (27.0-31.0); Mean Corpuscular Volume 90.4 fL (78.0-98.0); Platelet Count 325 10x3/uL (130-400); Red Blood Cell (RBC) Count 2.81 mill/uL (4.20-5.40); White Blood Cell (WBC) Count 8.32 10x3/uL (4.8-10.8)
[2025-05-21 04:56] LABS: Anion Gap 13 mmol/L (10-20); BUN (Urea Nitrogen) 19 mg/dL (9.8-20.1); Calc. Creatinine Clearance 123 mL/min (70-130); Calcium 8.1 mg/dL (7.8-10.44); Carbon Dioxide 23 mmol/L (23-31); Chloride 108 mmol/L (98-107); Glucose 169 mg/dL (83-110); Potassium 3.8 mmol/L (3.5-5.1); Sodium 140 mmol/L (136-145)
[2025-05-21 08:51] VITALS: TEMP 98.4
[2025-05-21 10:03] VITALS: BP 153/64
[2025-05-21] MEDS: Glycopyrrolate 0.4 MG/ 2 ML VIAL SLOW IVP PRN (11:08)
[2025-05-21 11:14] VITALS: BMI 34.3
[2025-05-21] MEDS ORDERED: MORPHINE 5 MG/10 ML PF VIAL NEB PRN (12:27)
== END 2025-05-21 16:30 | disposition expired | DRG 870 ==
LOC: 2NO 18:09 → CCU 19:36
PROVIDERS: ADMIT Family Medicine; ATTEND Internal Medicine
PROC: 0BH17EZ Insertion of Endotracheal Airway into Trachea, Via Natural or Artificial Opening (ICD-10-PCS; principal; 2025-05-14)
PROC: 5A1955Z Respiratory Ventilation, Greater than 96 Consecutive Hours (ICD-10-PCS; 2025-05-14)
PROC: 06HY33Z Insertion of Infusion Device into Lower Vein, Percutaneous Approach (ICD-10-PCS; 2025-05-14)
PROC: 4A133R1 Monitoring of Arterial Saturation, Peripheral, Percutaneous Approach (ICD-10-PCS; 2025-05-14)
PROC: 3E03329 Introduction of Other Anti-infective into Peripheral Vein, Percutaneous Approach (ICD-10-PCS; 2025-05-14)
PROC: 3E04329 Introduction of Other Anti-infective into Central Vein, Percutaneous Approach (ICD-10-PCS; 2025-05-14)
PROC: 3E033XZ Introduction of Vasopressor into Peripheral Vein, Percutaneous Approach (ICD-10-PCS; 2025-05-14)
PROC: 3E043XZ Introduction of Vasopressor into Central Vein, Percutaneous Approach (ICD-10-PCS; 2025-05-14)
PROC: 0T9B70Z Drainage of Bladder with Drainage Device, Via Natural or Artificial Opening (ICD-10-PCS; 2025-05-14)
PROC: 0BC78ZZ Extirpation of Matter from Left Main Bronchus, Via Natural or Artificial Opening Endoscopic (ICD-10-PCS; 2025-05-15)
PROC: 0BC18ZZ Extirpation of Matter from Trachea, Via Natural or Artificial Opening Endoscopic (ICD-10-PCS; 2025-05-15)
PROC: 0DH67UZ Insertion of Feeding Device into Stomach, Via Natural or Artificial Opening (ICD-10-PCS; 2025-05-15)
PROC: 3E0G76Z Introduction of Nutritional Substance into Upper GI, Via Natural or Artificial Opening (ICD-10-PCS; 2025-05-15)
PROC: 0D9670Z Drainage of Stomach with Drainage Device, Via Natural or Artificial Opening (ICD-10-PCS; 2025-05-15)
PROC: 0B938ZZ Drainage of Right Main Bronchus, Via Natural or Artificial Opening Endoscopic (ICD-10-PCS; 2025-05-15)
PROC: 0B978ZZ Drainage of Left Main Bronchus, Via Natural or Artificial Opening Endoscopic (ICD-10-PCS; 2025-05-17)
DX: A41.9 Sepsis, unspecified organism (principal); G93.41 Metabolic encephalopathy; I77.74 Dissection of vertebral artery; J69.0 Pneumonitis due to inhalation of food and vomit; J96.21 Acute and chronic respiratory failure with hypoxia; J15.20 Pneumonia due to staphylococcus, unspecified; Z66 Do not resuscitate; Z51.5 Encounter for palliative care; S12.000A Unspecified displaced fracture of first cervical vertebra, initial encounter for closed fracture; J98.11 Atelectasis; E87.20 Acidosis, unspecified; N17.9 Acute kidney failure, unspecified; J98.19 Other pulmonary collapse; F03.C4 Unspecified dementia, severe, with anxiety; F03.C18 Unspecified dementia, severe, with other behavioral disturbance; N30.01 Acute cystitis with hematuria; Z16.12 Extended spectrum beta lactamase (ESBL) resistance; J90 Pleural effusion, not elsewhere classified; J44.0 Chronic obstructive pulmonary disease with (acute) lower respiratory infection; R65.20 Severe sepsis without septic shock; G89.4 Chronic pain syndrome; E87.5 Hyperkalemia; E78.5 Hyperlipidemia, unspecified; I48.0 Paroxysmal atrial fibrillation; E11.22 Type 2 diabetes mellitus with diabetic chronic kidney disease; I12.9 Hypertensive chronic kidney disease with stage 1 through stage 4 chronic kidney disease, or unspecified chronic kidney disease; N18.30 Chronic kidney disease, stage 3 unspecified; D63.1 Anemia in chronic kidney disease; K21.9 Gastro-esophageal reflux disease without esophagitis; Z88.5 Allergy status to narcotic agent; Z88.1 Allergy status to other antibiotic agents; Z88.0 Allergy status to penicillin; Z79.899 Other long term (current) drug therapy; Z79.01 Long term (current) use of anticoagulants; Z79.4 Long term (current) use of insulin; Z79.84 Long term (current) use of oral hypoglycemic drugs; Z99.81 Dependence on supplemental oxygen; Z91.81 History of falling; Z91.148 Patient's other noncompliance with medication regimen for other reason; Z98.890 Other specified postprocedural states; Z90.710 Acquired absence of both cervix and uterus; Z90.49 Acquired absence of other specified parts of digestive tract; Z93.3 Colostomy status; R13.10 Dysphagia, unspecified; Z88.6 Allergy status to analgesic agent; E11.42 Type 2 diabetes mellitus with diabetic polyneuropathy; B95.61 Methicillin susceptible Staphylococcus aureus infection as the cause of diseases classified elsewhere; B96.20 Unspecified Escherichia coli [E. coli] as the cause of diseases classified elsewhere; B96.1 Klebsiella pneumoniae [K. pneumoniae] as the cause of diseases classified elsewhere; Z87.81 Personal history of (healed) traumatic fracture
CPT/HCPCS: 31500; 36415; 36416; 36600; 70450; 70491; 71045; 71275; 74177; 80048; 80053; 81001; 82805; 83605; 83690; 83880; 84145; 84484; 85025; 85379; 86141; 87040; 87070; 87077; 87081; 87086; 87186; 87205; 87449; 87637; 87899; 93005; 94002; 94003; 94640; 96365; 96375; 97139; J0132; J1650; J1790; J1815; J1956; J2060; J2185; J2250; J2470; J2704; Q9967